=== PATIENT | female | born 1965 ===

== ENCOUNTER 2018-07-15 16:11 | Emergency (ER) | payer OTHER ==
[2018-07-15 16:26] VITALS: BMI 39.8
[2018-07-15 16:31] VITALS: RESP 18
--- NOTE | 2018-07-15 17:47 | ED PDOC ---
Arrival/HPI - General Chief Complaint: Trauma Time Seen by Provider: 07/15/18 17:07 Historian: Patient - History of Present Illness Narrative History of Present Illness (Text): 07/15/18 17:43 52yr old female presents today with bilateral knee pain, right hand/wrist/elbow and shoulder pain and low back pain s/p fall. pt states she slipped and fell forward landing on right side injuring right arm, back and both knees. pt states incident occurred around 4pm. pt denies hitting her head. denies chest pain. no abdominal pain. no dizziness or weakness. Past Medical History - Provider Review Nursing Documentation Reviewed: Yes - Travel History Have you recently traveled outside [place] w/in the past 3 mons?: No - Infectious Disease Hx of Infectious Diseases: None - Reproductive Menopause: Yes Currently : No - Cardiac Hx Hypertension: Yes - Endocrine/Metabolic Hx Diabetes Mellitus Type 1: Yes - Genitourinary/Gynecological Hx Ovarian Cancer: Yes - Psychiatric Hx Substance Use: No - Surgical History Hx Hysterectomy: Yes - Anesthesia Hx Anesthesia: Yes Hx Anesthesia Reactions: No Hx Malignant Hyperthermia: No Family/Social History - Physician Review Nursing Documentation Reviewed: Yes Family/Social History: Unknown Family HX Smoking Status: Never Smoked Hx Alcohol Use: No Hx Substance Use: No Allergies/Home Meds Allergies/Adverse Reactions: Allergies No Known Allergies Allergy (Verified 07/15/18 16:26) Review of Systems - Review of Systems Constitutional: absent: Fatigue, Fevers Respiratory: absent: SOB, Cough Cardiovascular: absent: Chest Pain, Palpitations Gastrointestinal: absent: Abdominal Pain, Nausea, Vomiting Genitourinary Female: absent: Dysuria, Frequency Musculoskeletal: Arthralgias, Back Pain. absent: Neck Pain Skin: absent: Rash, Pruritis Neurological: absent: Headache, Dizziness Psychiatric: absent: Anxiety, Depression Physical Exam Vital Signs Reviewed: Yes Vital Signs Temp Pulse Resp BP Pulse Ox 07/15/18 16:30 97.3 F L 93 H 18 139/70 97 Temperature: Afebrile Blood Pressure: Normal Pulse: Regular Respiratory Rate: Normal Appearance: Positive for: Well-Appearing, Non-Toxic, Comfortable Pain Distress: None Mental Status: Positive for: Alert and Oriented X 3 - Systems Exam Head: Present: Atraumatic Mouth: Present: Moist Mucous Membranes Neck: Present: Normal Range of Motion, Paraspinal Tenderness (right sided trapezius tenderness. no edema, no erythema; no ecchymosis). No: MIDLINE TENDERNESS Respiratory/Chest: Present: Clear to Auscultation, Good Air Exchange. No: Respiratory Distress, Accessory Muscle Use, Tender to Palpation Cardiovascular: Present: Regular Rate and Rhythm Abdomen: No: Tenderness, Distention, Rebound, Guarding Back: Present: Normal Inspection, Midline Tenderness (+ midline lumbar and paraspinal tenderness. no step offs or crepitius; no edema, no erythema; no ecchymosis. ), Paraspinal Tenderness. No: Pain with Leg Raise Upper Extremity: Present: Normal ROM, NORMAL PULSES, Tenderness (right hand/wrist; + ttp over thenar eminence. + small 1cm around area of ecchymosis. full rom of hand and wrist. sensation and distal pulses intact. no snuff box tenderness. right elbow; + ttp over lateral aspect, full rom of elbow; right shoulder; + ttp over anterior superior aspect; full rom; no edema, no erythema; no ecchymosis; No claviclar tenderness. ), Neurovascularly Intact, Capillary Refill < 2s. No: Swelling Lower Extremity: Present: Tenderness (right knee; + small superficial abrasion noted to right knee; no bleeding; no ecchymosis; + ttp over anterior aspect; full rom of knee with pain. no calf tenderness, no ankle tenderness. senstation and distal pulses in tact. + onchymocosis noted to both right and left great toes. left knee; + ttp over anterior aspect; full rom of knee. no calf tenderness, no ankle tenderness. sensation and distal pulses intact. ambulating with steady gait. ), Neurovascularly Intact, Capillary Refill < 2 s. No: Swelling, Erythema, Deformity Neurological: Present: GCS=15, Speech Normal, Gait Normal Skin: Present: Warm, Dry, Normal Color Psychiatric: Present: Alert, Oriented x 3 Medical Decision Making ED Course and Treatment: 07/15/18 18:21 52yr old female with right arm, b/l knee pain and low back pain s/p fall. right hand: no fx right wrist: no fx right elbow: no fx right shoulder: no fx ls spine xray: no fx bilateral knee xrays: no fx 07/15/18 19:13 pt reassessment; pt feeling better after medications. pt placed into thumb spica splint on right hand/wrist. all results discussed with patient in depth; pt was advised to f/u with orthopedist/pmd within the next 2 days. pt was advised immediate return if symptoms worsen, persist or if new symptoms develop. impression; back pain, wrist pain, hand pain, shoulder pain, knee pain Motrin every 6 hours as needed for pain flexeril; 1 tablet every 8 hours as needed for muscle spasms; may cause drowsiness Rest, ice, compression, elevation Followup with the orthopedist within the next 2 days Followup with primary care physician within the next 2 days Return if symptoms worsen persist or if new symptoms develop - RAD Interpretation Radiology Orders: 07/15/18 17:27 ELBOW RIGHT 3 VIEWS ROUTINE [RAD] Stat HAND RIGHT 3 VIEWS [RAD] Stat KNEES BILATERAL [RAD] Stat LS SPINE WITH OBL > 18 YRS OLD [RAD] Stat SHOULDER RIGHT [RAD] Stat WRIST, RIGHT 3 VIEWS [RAD] Stat Procedures - Splinting Location: right wrist/hand Hand-Made Type: fiberglass Splint: thumb spica Pre-Proc Neuro Vasc Exam: normal Post-Proc Neuro Vasc Exam: normal Disposition/Present on Arrival - Present on Arrival Any Indicators Present on Arrival: No History of DVT/PE: No History of Uncontrolled Diabetes: No Urinary Catheter: No History of Decub. Ulcer: No History Surgical Site Infection Following: None - Disposition Have Diagnosis and Disposition been Completed?: Yes Diagnosis: Wrist pain, Hand pain, Shoulder pain, Knee pain, Back pain Disposition: HOME/ ROUTINE Disposition Time: 19:26 Patient Plan: Discharge Condition: GOOD Discharge Instructions (ExitCare): Muscle and Bone Pain (DC), Common Wrist Injuries (DC) Additional Instructions: Motrin every 6 hours as needed for pain flexeril; 1 tablet every 8 hours as needed for muscle spasms; may cause drow siness Rest, ice, compression, elevation Followup with the orthopedist within the next 2 days Followup with primary care physician within the next 2 days Return if symptoms worsen persist or if new symptoms develop Prescriptions: Cyclobenzaprine [Cyclobenzaprine HCl] 10 mg PO Q8 #10 tab Ibuprofen [Motrin] 600 mg PO Q6H PRN #20 tab PRN Reason: pain/fever reduction Referrals: Isidoro Davila MD [Staff Provider] - Follow up with primary Gio Nelson MD [Staff Provider] - Follow up with primary Jaclyn Chen MD [Medical Doctor] - Follow up with primary [facility] [Outside] - Follow up with primary [facility] [Outside] - Follow up with primary Forms: [employer] (German), WORK NOTE
[2018-07-15 17:51] VITALS: O2SAT 98
--- NOTE | 2018-07-15 19:06 | RAD ---
Date of service: 07/15/2018 PROCEDURE: Right Wrist Radiographs. HISTORY: fall COMPARISON: None. FINDINGS: BONES: Normal. No fracture. JOINTS: Normal. No dislocation. SOFT TISSUES: Normal. OTHER FINDINGS: None. IMPRESSION: Normal right wrist radiographs.
--- NOTE | 2018-07-15 19:07 | RAD ---
Is Goal PROCEDURE: Right Hand Radiographs. HISTORY: fall COMPARISON: None. FINDINGS: BONES: Normal. No fracture. JOINTS: Normal. No osteoarthritic changes. SOFT TISSUES: Normal. OTHER FINDINGS: None. IMPRESSION: Normal right hand radiographs.
--- NOTE | 2018-07-15 19:08 | RAD ---
Date of service: 07/15/2018 PROCEDURE: Radiographs of the right elbow. HISTORY: fall COMPARISON: No prior. FINDINGS: BONES: Normal. No fracture. JOINTS: Normal. No osteoarthritis. SOFT TISSUES: Normal. JOINT EFFUSION: None. OTHER FINDINGS: None. IMPRESSION: Unremarkable radiographs of the right elbow.
--- NOTE | 2018-07-15 19:08 | RAD ---
Date of service: 07/15/2018 PROCEDURE: Radiographs of the Right Shoulder HISTORY: fall COMPARISON: No prior. FINDINGS: BONES: Normal. No fracture. JOINTS: Normal. Glenohumeral and acromioclavicular joints preserved. No osteoarthritis. SOFT TISSUES: Normal. OTHER FINDINGS: None. IMPRESSION: Normal radiographs of the right shoulder.
--- NOTE | 2018-07-15 19:14 | RAD ---
Date of service: 07/15/2018 PROCEDURE: Radiographs of the Lumbar Spine. HISTORY: fall COMPARISON: No prior. FINDINGS: BONES: Normal alignment. No listhesis. No fracture. DISC SPACES: Unremarkable. OTHER FINDINGS: None. IMPRESSION: Unremarkable radiographs of the lumbar spine.
[2018-07-15 20:23] VITALS: BP 129/72; PULSE 88; TEMP 98.2
--- NOTE | 2018-07-16 08:11 | RAD ---
Date of service: 07/15/2018 PROCEDURE: Bilateral Knee Radiographs. HISTORY: fall COMPARISON: None. FINDINGS: BONES: No acute fracture or destructive bony lesion identified, bilaterally. Small bone island is seen at the medial metaphysis distal right femur. JOINTS: Medial and patellofemoral compartment joint space narrowing is appreciated bilaterally compatible with [id number] degenerative joint disease. No osteophyte development appreciated. No subluxation or dislocation identified. SOFT TISSUES: Right Knee: Normal. Left Knee: Normal. JOINT EFFUSION: Right Knee: None. Left Knee: None. OTHER FINDINGS: None. IMPRESSION: No acute fracture or dislocation bilateral knees. [id number] degenerative joint disease bilaterally.
== END 2018-07-15 20:20 | disposition home or self-care (01) ==
LOC: ED 16:11
DX: M25.561 Pain in right knee (principal); M25.562 Pain in left knee; M54.5 Low back pain; M79.641 Pain in right hand; M25.531 Pain in right wrist; M25.511 Pain in right shoulder; I10 Essential (primary) hypertension
CPT/HCPCS: 29125; 72110; 73030; 73080; 73110; 73130; 73560; 96372; 99284; J1885